=== PATIENT | male | born 1950 | race Caucasian/White ===

== ENCOUNTER 2019-07-07 18:59 | Observation (INO) | payer BC ==
[2019-07-07] MEDS ORDERED: Ketorolac 30 MG/ML SDV IVPUSH ONE (19:36)
[2019-07-07] MEDS ORDERED: Sodium Chloride 0.9% 10 ML Syringe FLUSH PRN ×2 (19:36→21:58)
[2019-07-07] MEDS ORDERED: Doxycycline 100 MG in Sodium Chloride 0.9% 100 ML IV ONE (19:38)
[2019-07-07] MEDS ORDERED: Lactated Ringers 1,000 ML IV SCH (19:45)
[2019-07-07] MEDS ORDERED: Acetaminophen 325 MG Tab PO ONE (20:11)
--- NOTE | 2019-07-07 20:12 | EDM.PDOC ---
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 No shortness of breath no chest pain no nausea or vomiting does have the chills lower back Pain Score (Numeric/FACES): 6 headache Pain Score (Numeric/FACES): 6 - Related Data Allergies Allergy/AdvReac Type Severity Reaction Status Date / Time Sulfa (Sulfonamide Allergy Rash Verified 07/07/19 19:40 Antibiotics) Home Meds: Home Meds Insulin NPH Hum/Reg Insulin Hm [Novolin 70-30 Flexpen] 50 units SUBCUT TID 07/06 [History] hydroCHLOROthiazide [Hydrochlorothiazide] 25 mg PO BID 07/07/19 [History] Past Medical History HEENT History: Reports: Impaired Vision, Other (See Below) Other HEENT History: glasses Cardiovascular History: Reports: Hypertension Respiratory History: Reports: Sleep Apnea Musculoskeletal History: Reports: Arthritis, Gout Neurological History: Reports: Brain Injury, Head Trauma Psychiatric History: Reports: Anxiety Endocrine/Metabolic History: Reports: Diabetes, Type II - Infectious Disease History Infectious Disease History: Reports: Chicken Pox, Measles - Past Surgical History GI Surgical History: Reports: Appendectomy, Hernia Repair/Other Social & Family History - Tobacco Use Smoking Status *Q: Never Smoker - Caffeine Use Caffeine Use: Reports: None - Recreational Drug Use Recreational Drug Use: No ED ROS GENERAL - Review of Systems Review Of Systems: See Below Constitutional: Reports: Fever, Weakness HEENT: Reports: No Symptoms Respiratory: Reports: No Symptoms Cardiovascular: Reports: No Symptoms GI/Abdominal: Reports: No Symptoms : Reports: No Symptoms Musculoskeletal: Reports: Muscle Pain (Body aches) Skin: Denies: Rash Neurological: Reports: No Symptoms ED EXAM, SEPSIS - Physical Exam Exam: See Below Exam Limited By: No Limitations General Appearance: Alert, Mild Distress Neck: Normal Inspection, Supple, Non-Tender, Full Range of Motion Respiratory/Chest: No Respiratory Distress, Lungs Clear, Normal Breath Sounds, No Accessory Muscle Use, Chest Non-Tender Cardiovascular: Regular Rate, Rhythm, No Murmur GI/Abdominal Exam: Soft, Non-Tender Extremities: Normal Inspection, No Pedal Edema Course - Vital Signs Last Recorded V/S: Last Vital Signs Temp 99.9 F 07/07/19 21:46 Pulse 90 07/07/19 21:46 Resp 29 H 07/07/19 21:46 BP 95/50 L 07/07/19 21:46 Pulse Ox 94 L 07/07/19 21:46 - Orders/Labs/Meds Orders: Active Orders 24 hr Category Date Time Status BABESIA MICROTI ANTIBODY PANEL Urgent Lab 07/07/19 19:32 Received CULTURE BLOOD [BC] Urgent Lab 07/07/19 19:32 Received CULTURE BLOOD [BC] Urgent Lab 07/07/19 19:42 Received HUMAN GRANULOCYTIC LATASHA-HGE Urgent Lab 07/07/19 19:32 Received LYME, TOTAL AB TEST/REFLEX Urgent Lab 07/07/19 19:32 Received REFLEX LACTIC ACID YES OR NO [CHEM] Routine Lab 07/07/19 20:11 Received Lactated Ringers [Ringers, Lactated] 1,000 ml Med 07/07/19 19:45 Active IV ASDIRECTED Sodium Chloride 0.9% [Saline Flush] Med 07/07/19 19:36 Active 10 ml FLUSH ASDIRECTED PRN Blood Culture x2 Reflex Set [OM.PC] Urgent Oth 07/07/19 19:36 Ordered Isolation [COMM] Routine Oth 07/07/19 21:00 Ordered Saline Lock Insert [OM.PC] Stat Oth 07/07/19 19:36 Ordered Severe Sepsis Onset Time [OM.PC] Stat Oth 07/07/19 19:36 Ordered Medication Orders Lactated Ringer's (Ringers, Lactated) 1,000 mls @ 999 mls/hr IV ASDIRECTED RANDI Last Admin: 07/07/19 20:09 Dose: 999 mls/hr Sodium Chloride (Saline Flush) 10 ml FLUSH ASDIRECTED PRN PRN Reason: Keep Vein Open Last Admin: 07/07/19 20:42 Dose: 10 ml Labs: Laboratory Tests 05/15/20 05/15/20 05/15/20 Range/Units 19:32 19:32 19:32 WBC 6.1 (4.5-11.0) K/uL RBC 4.04 L (4.30-5.90) M/uL Hgb 12.2 (12.0-15.0) g/dL Hct 35.8 L (40.0-54.0) % MCV 89 (80-98) fL MCH 30 (27-31) pg MCHC 34 (32-36) % Plt Count 269 (150-400) K/uL Neut % (Auto) 70 H (36-66) % Lymph % (Auto) 22 L (24-44) % [place] % (Auto) 8 H (2-6) % Eos % (Auto) 0 L (2-4) % Baso % (Auto) 0 (0-1) % Puncture Site ABG pH (7.350-7.450) ABG pCO2 (35.0-42.0) mmHg ABG pO2 (75.0-100.0) mmHg ABG HCO3 (22.0-26.0) mmol/L ABG Total CO2 (23.0-27.0) mmol/L ABG O2 Saturation (95.0-98.0) % ABG O2 Content (15.0-23.0) %vol ABG Base Excess mm/L ABG Hemoglobin (13.5-18.0) g/dL ABG Oxyhemoglobin % ABG Carboxyhemoglobin (0.0-1.6) % ABG Methemoglobin % Bola Test O2 Delivery Device Oxygen Flow Rate L Sodium 131 L (140-148) mmol/L Potassium 3.8 (3.6-5.2) mmol/L Chloride 97 L (100-108) mmol/L Carbon Dioxide 27 (21-32) mmol/L Anion Gap 10.8 (5.0-14.0) mmol/L BUN 41 H (7-18) mg/dL Creatinine 1.8 H (0.8-1.3) mg/dL Est Cr Clr Drug Dosing 41.68 mL/min Estimated GFR (MDRD) 38 L (>60) Glucose 265 H (74-106) mg/dL Lactic Acid 2.2 H (0.4-2.0) mmol/L Calcium 8.0 L (8.5-10.1) mg/dL Total Bilirubin 0.6 (0.2-1.0) mg/dL AST 64 H (15-37) U/L ALT 126 H (12-78) U/L Alkaline Phosphatase 145 H (46-116) U/L Lactate Dehydrogenase (85-227) U/L C-Reactive Protein (0.0-0.3) mg/dL Total Protein 6.8 (6.4-8.2) g/dL Albumin 2.6 L (3.4-5.0) g/dL Globulin 4.2 H (2.3-3.5) g/dL Albumin/Globulin Ratio 0.6 L (1.2-2.2) Lipase 95 (73-393) U/L Procalcitonin ng/mL Urine Color (YELLOW) Urine Appearance (CLEAR) Urine pH (5.0-8.0) Ur Specific [place] (1.008-1.030) Urine Protein (NEGATIVE) mg/dL Urine Glucose (UA) (NEGATIVE) mg/dL Urine Ketones (NEGATIVE) mg/dL Urine Occult Blood (NEGATIVE) Urine Nitrite (NEGATIVE) Urine Bilirubin (NEGATIVE) Urine Urobilinogen (0.2-1.0) EU/dL Ur Leukocyte Esterase (NEGATIVE) Urine RBC (0-5) Urine WBC (0-5) Ur Epithelial Cells Amorphous Sediment Urine Bacteria Urine Mucus 07/07/19 07/07/19 07/07/19 Range/Units 19:32 19:32 19:52 WBC (4.5-11.0) K/uL RBC (4.30-5.90) M/uL Hgb (12.0-15.0) g/dL Hct (40.0-54.0) % MCV (80-98) fL MCH (27-31) pg MCHC (32-36) % Plt Count (150-400) K/uL Neut % (Auto) (36-66) % Lymph % (Auto) (24-44) % [place] % (Auto) (2-6) % Eos % (Auto) (2-4) % Baso % (Auto) (0-1) % Puncture Site ABG pH (7.350-7.450) ABG pCO2 (35.0-42.0) mmHg ABG pO2 (75.0-100.0) mmHg ABG HCO3 (22.0-26.0) mmol/L ABG Total CO2 (23.0-27.0) mmol/L ABG O2 Saturation (95.0-98.0) % ABG O2 Content (15.0-23.0) %vol ABG Base Excess mm/L ABG Hemoglobin (13.5-18.0) g/dL ABG Oxyhemoglobin % ABG Carboxyhemoglobin (0.0-1.6) % ABG Methemoglobin % Bola Test O2 Delivery Device Oxygen Flow Rate L Sodium (140-148) mmol/L Potassium (3.6-5.2) mmol/L Chloride (100-108) mmol/L Carbon Dioxide (21-32) mmol/L Anion Gap (5.0-14.0) mmol/L BUN (7-18) mg/dL Creatinine (0.8-1.3) mg/dL Est Cr Clr Drug Dosing mL/min Estimated GFR (MDRD) (>60) Glucose (74-106) mg/dL Lactic Acid (0.4-2.0) mmol/L Calcium (8.5-10.1) mg/dL Total Bilirubin (0.2-1.0) mg/dL AST (15-37) U/L ALT (12-78) U/L Alkaline Phosphatase (46-116) U/L Lactate Dehydrogenase 206 (85-227) U/L C-Reactive Protein 18.36 H (0.0-0.3) mg/dL Total Protein (6.4-8.2) g/dL Albumin (3.4-5.0) g/dL Globulin (2.3-3.5) g/dL Albumin/Globulin Ratio (1.2-2.2) Lipase (73-393) U/L Procalcitonin 1.81 ng/mL Urine Color Yellow (YELLOW) Urine Appearance Clear (CLEAR) Urine pH 7.0 (5.0-8.0) Ur Specific [place] 1.020 (1.008-1.030) Urine Protein 100 H (NEGATIVE) mg/dL Urine Glucose (UA) 500 H (NEGATIVE) mg/dL Urine Ketones Negative (NEGATIVE) mg/dL Urine Occult Blood Trace-lysed H (NEGATIVE) Urine Nitrite Negative (NEGATIVE) Urine Bilirubin Negative (NEGATIVE) Urine Urobilinogen 0.2 (0.2-1.0) EU/dL Ur Leukocyte Esterase Negative (NEGATIVE) Urine RBC 0-5 (0-5) Urine WBC Not seen (0-5) Ur Epithelial Cells Not seen Amorphous Sediment Not seen Urine Bacteria Not seen Urine Mucus Not seen 07/07/19 Range/Units 21:07 WBC (4.5-11.0) K/uL RBC (4.30-5.90) M/uL Hgb (12.0-15.0) g/dL Hct (40.0-54.0) % MCV (80-98) fL MCH (27-31) pg MCHC (32-36) % Plt Count (150-400) K/uL Neut % (Auto) (36-66) % Lymph % (Auto) (24-44) % [place] % (Auto) (2-6) % Eos % (Auto) (2-4) % Baso % (Auto) (0-1) % Puncture Site Lt radial ABG pH 7.485 H (7.350-7.450) ABG pCO2 33.4 L (35.0-42.0) mmHg ABG pO2 78.6 (75.0-100.0) mmHg ABG HCO3 24.9 (22.0-26.0) mmol/L ABG Total CO2 22.5 L (23.0-27.0) mmol/L ABG O2 Saturation 95.0 (95.0-98.0) % ABG O2 Content 14.2 L (15.0-23.0) %vol ABG Base Excess 2.1 mm/L ABG Hemoglobin 10.8 L (13.5-18.0) g/dL ABG Oxyhemoglobin 92.7 % ABG Carboxyhemoglobin 1.0 (0.0-1.6) % ABG Methemoglobin 1.4 % Bola Test Pass O2 Delivery Device Nasal cannula Oxygen Flow Rate 1.0 L Sodium (140-148) mmol/L Potassium (3.6-5.2) mmol/L Chloride (100-108) mmol/L Carbon Dioxide (21-32) mmol/L Anion Gap (5.0-14.0) mmol/L BUN (7-18) mg/dL Creatinine (0.8-1.3) mg/dL Est Cr Clr Drug Dosing mL/min Estimated GFR (MDRD) (>60) Glucose (74-106) mg/dL Lactic Acid (0.4-2.0) mmol/L Calcium (8.5-10.1) mg/dL Total Bilirubin (0.2-1.0) mg/dL AST (15-37) U/L ALT (12-78) U/L Alkaline Phosphatase (46-116) U/L Lactate Dehydrogenase (85-227) U/L C-Reactive Protein (0.0-0.3) mg/dL Total Protein (6.4-8.2) g/dL Albumin (3.4-5.0) g/dL Globulin (2.3-3.5) g/dL Albumin/Globulin Ratio (1.2-2.2) Lipase (73-393) U/L Procalcitonin ng/mL Urine Color (YELLOW) Urine Appearance (CLEAR) Urine pH (5.0-8.0) Ur Specific [place] (1.008-1.030) Urine Protein (NEGATIVE) mg/dL Urine Glucose (UA) (NEGATIVE) mg/dL Urine Ketones (NEGATIVE) mg/dL Urine Occult Blood (NEGATIVE) Urine Nitrite (NEGATIVE) Urine Bilirubin (NEGATIVE) Urine Urobilinogen (0.2-1.0) EU/dL Ur Leukocyte Esterase (NEGATIVE) Urine RBC (0-5) Urine WBC (0-5) Ur Epithelial Cells Amorphous Sediment Urine Bacteria Urine Mucus Meds: Medications Generic Name Dose Route Start Last Admin Trade Name Kendrickq PRN Reason Stop Dose Admin Lactated Ringer's 1,000 mls @ 999 mls/hr 07/07/19 19:45 07/07/19 20:09 Ringers, Lactated IV 999 mls/hr ASDIRECTED RANDI Administration Sodium Chloride 10 ml 07/07/19 19:36 07/07/19 20:42 Saline Flush FLUSH 10 ml ASDIRECTED PRN Administration Keep Vein Open Discontinued Medications Generic Name Dose Route Start Last Admin Trade Name Freq PRN Reason Stop Dose Admin Acetaminophen 650 mg 07/07/19 20:11 07/07/19 20:16 Tylenol PO 07/07/19 20:12 650 mg NOW ONE Administration Doxycycline Hyclate 100 mg/ 100 mls @ 100 mls/hr 07/07/19 19:38 07/07/19 20: 10 Sodium Chloride IV 07/07/19 20:37 100 mls/hr ONETIME ONE Administration Lactated Ringer's 1,000 mls @ 999 mls/hr 07/07/19 20:48 07/07/19 20:45 Ringers, Lactated IV 07/07/19 21:48 999 mls/hr BOLUS ONE Administration Ketorolac Tromethamine 30 mg 07/07/19 19:36 07/07/19 20:10 Toradol IVPUSH 07/07/19 19:37 30 mg ONETIME ONE Administration Departure - Departure Time of Disposition: 21:58 Disposition: Admitted As Inpatient 68 Condition: Fair Clinical Impression: Tick-borne fever - Discharge Information Referrals: PCP,None [Primary Care Provider] - Forms: ED Department Discharge Sepsis Event Note - Evaluation Sepsis Screening Result: Possible Severe Sepsis Risk - Focused Exam Vital Signs: Vital Signs Temp Temp Pulse Resp BP Pulse Ox 07/07/19 21:46 99.9 F 90 29 H 95/50 L 94 L 07/07/19 21:25 94 27 H 93/53 L 94 L 07/07/19 21:15 100.7 F H 94 16 96/49 L 93 L 07/07/19 20:55 101.2 F H 96 33 H 100/48 L 96 07/07/19 20:46 100.7 F H 07/07/19 20:40 102.9 F H 95 37 H 92/49 L 92 L 07/07/19 20:23 104.0 F H 97 16 95/52 L 90 L 07/07/19 20:17 103.4 F H 96 23 H 119/66 91 L 07/07/19 20:16 103.4 F H 07/07/19 19:26 102.2 F H 102 H 31 H 145/76 H 90 L 07/07/19 19:24 102.2 F H 102 H 31 H 145/76 H 90 L Date Exam was Performed: 07/07/19 Time Exam was Performed: 21:55 - My Orders Last 24 Hours: My Active Orders 07/07/19 19:32 BABESIA MICROTI ANTIBODY PANEL Urgent CULTURE BLOOD [BC] Urgent HUMAN GRANULOCYTIC LATASHA-HGE Urgent LYME, TOTAL AB TEST/REFLEX Urgent 07/07/19 19:36 Sodium Chloride 0.9% [Saline Flush] 10 ml FLUSH ASDIRECTED PRN Blood Culture x2 Reflex Set [OM.PC] Urgent Saline Lock Insert [OM.PC] Stat Severe Sepsis Onset Time [OM.PC] Stat 07/07/19 19:42 CULTURE BLOOD [BC] Urgent 07/07/19 19:45 Lactated Ringers [Ringers, Lactated] 1,000 ml IV ASDIRECTED 07/07/19 20:11 REFLEX LACTIC ACID YES OR NO [CHEM] Routine 07/07/19 21:00 Isolation [COMM] Routine - Assessment/Plan Last 24 Hours: My Active Orders 07/07/19 19:32 BABESIA MICROTI ANTIBODY PANEL Urgent CULTURE BLOOD [BC] Urgent HUMAN GRANULOCYTIC LATASHA-HGE Urgent LYME, TOTAL AB TEST/REFLEX Urgent 07/07/19 19:36 Sodium Chloride 0.9% [Saline Flush] 10 ml FLUSH ASDIRECTED PRN Blood Culture x2 Reflex Set [OM.PC] Urgent Saline Lock Insert [OM.PC] Stat Severe Sepsis Onset Time [OM.PC] Stat 07/07/19 19:42 CULTURE BLOOD [BC] Urgent 07/07/19 19:45 Lactated Ringers [Ringers, Lactated] 1,000 ml IV ASDIRECTED 07/07/19 20:11 REFLEX LACTIC ACID YES OR NO [CHEM] Routine 07/07/19 21:00 Isolation [COMM] Routine Plan: Assessment Acuity = acute Site and laterality = concern for tickborne illness early sepsis Etiology = Ixodes scapularis Manifestations = fever, body aches Location of injury = Home Lab values = CBC unremarkable pH 7.48 PCO2 33.4 PO2 78.6 and a bicarb 24.8 consistent with the primary respiratory alkalosis sodium low at 131 consistent hyponatremia creatinine elevated 1.8 consistent with renal failure stage G3 B lactic acid elevated 2.2 consistent lactic acidosis AST at 64 ALT elevated 126 consistent with elevated liver enzymes LDH 206 normal range CRP elevated 18.36 albumin low at 2.6 consistent with hypoalbuminemia procalcitonin elevated at 1.81 urinalysis reveals 100 protein consistent protein urea 500 glucose consistent with glucosuria influenza a and B are both negative chest x-ray reveals bilateral fibrosis Plan Call discussed case with hospitalist on-call at [phone] kindly agreed to come and evaluate the patient emergency department for admission thus far blood cultures are pending 1 dose doxycycline provided 2 L of lactated Ringer's provided [address] This note was dictated using [email or web address] voice recognition software please call with any questions on syntax or grammar.
[2019-07-07] MEDS ORDERED: Lactated Ringers 1,000 ML IV ONE (20:48)
--- NOTE | 2019-07-07 21:41 | CRLCR ---
INDICATION: Hypoxia TECHNIQUE: Chest 1 view. COMPARISON: None FINDINGS: Cardiovascular and mediastinum: Heart size and vasculature are normal in caliber and appearance. Mediastinum is within normal limits. Lungs and pleural space: Probable bilateral lower lobe pulmonary fibrosis. No sign of infiltrate or mass. No sign of pleural effusion. No pneumothorax. Bones and soft tissues: No significant findings. IMPRESSION: No definitive infiltrates. Probable bilateral lower lobe pulmonary fibrosis. Dictated by Kt Vyas MD @ 07/07/2019 9:40:04 PM Dictated by: Kt Vyas MD @ 07/07/2019 21:40:10 (Electronically Signed)
[2019-07-07] MEDS ORDERED: Acetaminophen 325 MG Tab PO PRN (22:48)
[2019-07-07] MEDS ORDERED: Albuterol 0.083% 2.5 MG/3 ML Neb Soln NEB PRN (22:48)
[2019-07-07] MEDS ORDERED: Morphine 2 MG/ML SYRINGE IVPUSH PRN (22:48)
[2019-07-07] MEDS ORDERED: oxyCODONE 5 MG Tab PO PRN (22:48)
[2019-07-07] MEDS ORDERED: Ondansetron 4 MG Tab.DIS PO PRN (22:48)
[2019-07-07] MEDS ORDERED: Sodium Chloride 0.9% 500 ML IV SCH (22:48)
[2019-07-07] MEDS ORDERED: Pantoprazole 40 MG Vial IV SCH (22:48)
[2019-07-07] MEDS ORDERED: Docusate Sodium 100 MG Cap PO PRN (22:48)
[2019-07-07] MEDS ORDERED: Ondansetron 4 MG/2 ML SDV IV PRN (22:48)
--- NOTE | 2019-07-07 23:00 | PCM.HP.2 ---
H&P History of Present Illness - General Date of Service: 07/07/19 Admit Problem/Dx: Admission Diagnosis/Problem Admission Diagnosis/Problem Fever Source of Information: Patient, Provider - History of Present Illness Initial Comments - Free Text/Narative: 68-year-old gentleman presents emergency department a complaint of fever and body aches he does admit to getting bit by a deer tick possibly about 10 days ago he has not been out socially with any significant travel he is spending time between his farm in [facility] and his cabin on [facility]. No shortness of breath no chest pain no nausea or vomiting does have the chills lower back Assessment Acuity = acute Site and laterality = concern for tickborne illness early sepsis Etiology = Ixodes scapularis Manifestations = fever, body aches Location of injury = Home Lab values = CBC unremarkable pH 7.48 PCO2 33.4 PO2 78.6 and a bicarb 24.8 consistent with the primary respiratory alkalosis sodium low at 131 consistent hyponatremia creatinine elevated 1.8 consistent with renal failure stage G3 B lactic acid elevated 2.2 consistent lactic acidosis AST at 64 ALT elevated 126 consistent with elevated liver enzymes LDH 206 normal range CRP elevated 18.36 albumin low at 2.6 consistent with hypoalbuminemia procalcitonin elevated at 1.81 urinalysis reveals 100 protein consistent protein urea 500 glucose consistent with glucosuria influenza a and B are both negative chest x-ray reveals bilateral fibrosis Plan Call discussed case with hospitalist on-call at [phone] kindly agreed to come and evaluate the patient emergency department for admission thus far blood cultures are pending 1 dose doxycycline provided 2 L of lactated Ringer's provided [address] Onset of Symptoms: Reports: Gradual Duration of Symptoms: Reports: Day(s): (10 to 14 days), Getting Worse Location: Reports: Generalized (fever, chills, body aches and weakness) Severity: Severe Improves with: Reports: None Worsens with: Reports: None Associated Symptoms: Reports: Fever/Chills, Headaches, Loss of Appetite, Malaise , Nausea/Vomiting, Weakness lower back Pain Score (Numeric/FACES): 6 headache Pain Score (Numeric/FACES): 6 - Related Data Allergies/Adverse Reactions: Allergies Allergy/AdvReac Type Severity Reaction Status Date / Time Sulfa (Sulfonamide Allergy Rash Verified 07/07/19 19:40 Antibiotics) Home Medications: Home Meds Insulin NPH Hum/Reg Insulin Hm [Novolin 70-30 Flexpen] 50 units SUBCUT TID 07/06 [History] hydroCHLOROthiazide [Hydrochlorothiazide] 25 mg PO BID 07/07/19 [History] Past Medical History HEENT History: Reports: Impaired Vision, Other (See Below) Other HEENT History: glasses Cardiovascular History: Reports: Hypertension Respiratory History: Reports: Sleep Apnea Gastrointestinal History: Reports: Other (See Below) Other Gastrointestinal History: celiacs disease Musculoskeletal History: Reports: Arthritis, Gout Neurological History: Reports: Brain Injury, Head Trauma Other Neuro History: skull surgery due to head crush injury Psychiatric History: Reports: Anxiety Endocrine/Metabolic History: Reports: Diabetes, Type II - Infectious Disease History Infectious Disease History: Reports: Chicken Pox, Measles - Past Surgical History GI Surgical History: Reports: Appendectomy, Hernia Repair/Other Social & Family History - Tobacco Use Smoking Status *Q: Never Smoker - Caffeine Use Caffeine Use: Reports: None - Recreational Drug Use Recreational Drug Use: No - Living Situation & Occupation Living situation: Reports: Occupation: Employed (lives with in home between [place], [place] and [place], [place], currenly staying at [facility] 15 miles north of [place], [place]. 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.) H&P Review of Systems - Review of Systems: Review Of Systems: See Below General: Reports: Fever, Chills, Malaise, Weakness, Fatigue, Decreased Appetite HEENT: Reports: Glasses, Headaches Pulmonary: Reports: No Symptoms Cardiovascular: Reports: No Symptoms Gastrointestinal: Reports: Nausea Genitourinary: Reports: No Symptoms Musculoskeletal: Reports: Back Pain Skin: Reports: Other (reports removed a single [place] T9ick form left inner thigh without rash) Psychiatric: Reports: No Symptoms Neurological: Reports: No Symptoms Hematologic/Lymphatic: Reports: No Symptoms Immunologic: Reports: No Symptoms Exam - Exam Exam: See Below - Vital Signs Vital Signs: Last Vital Signs Temp 37.7 C 07/07/19 21:46 Pulse 81 07/07/19 22:27 Resp 17 07/07/19 22:27 BP 92/50 L 07/07/19 22:27 Pulse Ox 89 L 07/07/19 22:27 Weight: 77.8 kg - Exam General: Alert, Oriented, Cooperative, Mild Distress HEENT: PERRLA, Conjunctiva Clear, EOMI, Hearing Intact, Normal Nasal Septum, Glasses Neck: Supple, Trachea Midline Lungs: Clear to Auscultation, Normal Respiratory Effort Cardiovascular: Regular Rate, Regular Rhythm GI/Abdominal Exam: Normal Bowel Sounds (Male) Exam: Deferred Rectal (Males) Exam: Deferred Back Exam: Normal Inspection, Full Range of Motion, NT Extremities: Normal Inspection, Normal Range of Motion, Non-Tender, No Pedal Edema, Normal Capillary Refill Peripheral Pulses: 2+: Radial (L), Radial (R), Dorsalis Pedis (L), Dorsalis Pedis (R) Skin: Warm, Dry, Intact Neurological: Cranial Nerves Intact, Reflexes Equal Bilateral Neuro Extensive - Mental Status: Alert, Oriented x3, Normal Mood/Affect, Normal Cognition Neuro Extensive - Motor, Sensory, Reflexes: CN II-XII Intact, Normal Gait, Normal Reflexes Psychiatric: Alert, Normal Affect, Normal Mood - Patient Data Lab Results Last 24 hrs: Laboratory Results - last 24 hr 07/07/19 07/07/19 07/07/19 Range/Units 19:32 19:32 19:32 WBC 6.1 (4.5-11.0) K/uL RBC 4.04 L (4.30-5.90) M/uL Hgb 12.2 (12.0-15.0) g/dL Hct 35.8 L (40.0-54.0) % MCV 89 (80-98) fL MCH 30 (27-31) pg MCHC 34 (32-36) % Plt Count 269 (150-400) K/uL Neut % (Auto) 70 H (36-66) % Lymph % (Auto) 22 L (24-44) % [place] % (Auto) 8 H (2-6) % Eos % (Auto) 0 L (2-4) % Baso % (Auto) 0 (0-1) % Puncture Site ABG pH (7.350-7.450) ABG pCO2 (35.0-42.0) mmHg ABG pO2 (75.0-100.0) mmHg ABG HCO3 (22.0-26.0) mmol/L ABG Total CO2 (23.0-27.0) mmol/L ABG O2 Saturation (95.0-98.0) % ABG O2 Content (15.0-23.0) %vol ABG Base Excess mm/L ABG Hemoglobin (13.5-18.0) g/dL ABG Oxyhemoglobin % ABG Carboxyhemoglobin (0.0-1.6) % ABG Methemoglobin % Bola Test O2 Delivery Device Oxygen Flow Rate L Sodium 131 L (140-148) mmol/L Potassium 3.8 (3.6-5.2) mmol/L Chloride 97 L (100-108) mmol/L Carbon Dioxide 27 (21-32) mmol/L Anion Gap 10.8 (5.0-14.0) mmol/L BUN 41 H (7-18) mg/dL Creatinine 1.8 H (0.8-1.3) mg/dL Est Cr Clr Drug Dosing 41.68 mL/min Estimated GFR (MDRD) 38 L (>60) Glucose 265 H (74-106) mg/dL Lactic Acid 2.2 H (0.4-2.0) mmol/L Calcium 8.0 L (8.5-10.1) mg/dL Total Bilirubin 0.6 (0.2-1.0) mg/dL AST 64 H (15-37) U/L ALT 126 H (12-78) U/L Alkaline Phosphatase 145 H (46-116) U/L Lactate Dehydrogenase (85-227) U/L C-Reactive Protein (0.0-0.3) mg/dL Total Protein 6.8 (6.4-8.2) g/dL Albumin 2.6 L (3.4-5.0) g/dL Globulin 4.2 H (2.3-3.5) g/dL Albumin/Globulin Ratio 0.6 L (1.2-2.2) Lipase 95 (73-393) U/L Procalcitonin ng/mL Urine Color (YELLOW) Urine Appearance (CLEAR) Urine pH (5.0-8.0) Ur Specific [place] (1.008-1.030) Urine Protein (NEGATIVE) mg/dL Urine Glucose (UA) (NEGATIVE) mg/dL Urine Ketones (NEGATIVE) mg/dL Urine Occult Blood (NEGATIVE) Urine Nitrite (NEGATIVE) Urine Bilirubin (NEGATIVE) Urine Urobilinogen (0.2-1.0) EU/dL Ur Leukocyte Esterase (NEGATIVE) Urine RBC (0-5) Urine WBC (0-5) Ur Epithelial Cells Amorphous Sediment Urine Bacteria Urine Mucus 07/07/19 07/07/19 07/07/19 Range/Units 19:32 19:32 19:52 WBC (4.5-11.0) K/uL RBC (4.30-5.90) M/uL Hgb (12.0-15.0) g/dL Hct (40.0-54.0) % MCV (80-98) fL MCH (27-31) pg MCHC (32-36) % Plt Count (150-400) K/uL Neut % (Auto) (36-66) % Lymph % (Auto) (24-44) % [place] % (Auto) (2-6) % Eos % (Auto) (2-4) % Baso % (Auto) (0-1) % Puncture Site ABG pH (7.350-7.450) ABG pCO2 (35.0-42.0) mmHg ABG pO2 (75.0-100.0) mmHg ABG HCO3 (22.0-26.0) mmol/L ABG Total CO2 (23.0-27.0) mmol/L ABG O2 Saturation (95.0-98.0) % ABG O2 Content (15.0-23.0) %vol ABG Base Excess mm/L ABG Hemoglobin (13.5-18.0) g/dL ABG Oxyhemoglobin % ABG Carboxyhemoglobin (0.0-1.6) % ABG Methemoglobin % Bola Test O2 Delivery Device Oxygen Flow Rate L Sodium (140-148) mmol/L Potassium (3.6-5.2) mmol/L Chloride (100-108) mmol/L Carbon Dioxide (21-32) mmol/L Anion Gap (5.0-14.0) mmol/L BUN (7-18) mg/dL Creatinine (0.8-1.3) mg/dL Est Cr Clr Drug Dosing mL/min Estimated GFR (MDRD) (>60) Glucose (74-106) mg/dL Lactic Acid (0.4-2.0) mmol/L Calcium (8.5-10.1) mg/dL Total Bilirubin (0.2-1.0) mg/dL AST (15-37) U/L ALT (12-78) U/L Alkaline Phosphatase (46-116) U/L Lactate Dehydrogenase 206 (85-227) U/L C-Reactive Protein 18.36 H (0.0-0.3) mg/dL Total Protein (6.4-8.2) g/dL Albumin (3.4-5.0) g/dL Globulin (2.3-3.5) g/dL Albumin/Globulin Ratio (1.2-2.2) Lipase (73-393) U/L Procalcitonin 1.81 ng/mL Urine Color Yellow (YELLOW) Urine Appearance Clear (CLEAR) Urine pH 7.0 (5.0-8.0) Ur Specific [place] 1.020 (1.008-1.030) Urine Protein 100 H (NEGATIVE) mg/dL Urine Glucose (UA) 500 H (NEGATIVE) mg/dL Urine Ketones Negative (NEGATIVE) mg/dL Urine Occult Blood Trace-lysed H (NEGATIVE) Urine Nitrite Negative (NEGATIVE) Urine Bilirubin Negative (NEGATIVE) Urine Urobilinogen 0.2 (0.2-1.0) EU/dL Ur Leukocyte Esterase Negative (NEGATIVE) Urine RBC 0-5 (0-5) Urine WBC Not seen (0-5) Ur Epithelial Cells Not seen Amorphous Sediment Not seen Urine Bacteria Not seen Urine Mucus Not seen 07/07/19 Range/Units 21:07 WBC (4.5-11.0) K/uL RBC (4.30-5.90) M/uL Hgb (12.0-15.0) g/dL Hct (40.0-54.0) % MCV (80-98) fL MCH (27-31) pg MCHC (32-36) % Plt Count (150-400) K/uL Neut % (Auto) (36-66) % Lymph % (Auto) (24-44) % [place] % (Auto) (2-6) % Eos % (Auto) (2-4) % Baso % (Auto) (0-1) % Puncture Site Lt radial ABG pH 7.485 H (7.350-7.450) ABG pCO2 33.4 L (35.0-42.0) mmHg ABG pO2 78.6 (75.0-100.0) mmHg ABG HCO3 24.9 (22.0-26.0) mmol/L ABG Total CO2 22.5 L (23.0-27.0) mmol/L ABG O2 Saturation 95.0 (95.0-98.0) % ABG O2 Content 14.2 L (15.0-23.0) %vol ABG Base Excess 2.1 mm/L ABG Hemoglobin 10.8 L (13.5-18.0) g/dL ABG Oxyhemoglobin 92.7 % ABG Carboxyhemoglobin 1.0 (0.0-1.6) % ABG Methemoglobin 1.4 % Bola Test Pass O2 Delivery Device Nasal cannula Oxygen Flow Rate 1.0 L Sodium (140-148) mmol/L Potassium (3.6-5.2) mmol/L Chloride (100-108) mmol/L Carbon Dioxide (21-32) mmol/L Anion Gap (5.0-14.0) mmol/L BUN (7-18) mg/dL Creatinine (0.8-1.3) mg/dL Est Cr Clr Drug Dosing mL/min Estimated GFR (MDRD) (>60) Glucose (74-106) mg/dL Lactic Acid (0.4-2.0) mmol/L Calcium (8.5-10.1) mg/dL Total Bilirubin (0.2-1.0) mg/dL AST (15-37) U/L ALT (12-78) U/L Alkaline Phosphatase (46-116) U/L Lactate Dehydrogenase (85-227) U/L C-Reactive Protein (0.0-0.3) mg/dL Total Protein (6.4-8.2) g/dL Albumin (3.4-5.0) g/dL Globulin (2.3-3.5) g/dL Albumin/Globulin Ratio (1.2-2.2) Lipase (73-393) U/L Procalcitonin ng/mL Urine Color (YELLOW) Urine Appearance (CLEAR) Urine pH (5.0-8.0) Ur Specific [place] (1.008-1.030) Urine Protein (NEGATIVE) mg/dL Urine Glucose (UA) (NEGATIVE) mg/dL Urine Ketones (NEGATIVE) mg/dL Urine Occult Blood (NEGATIVE) Urine Nitrite (NEGATIVE) Urine Bilirubin (NEGATIVE) Urine Urobilinogen (0.2-1.0) EU/dL Ur Leukocyte Esterase (NEGATIVE) Urine RBC (0-5) Urine WBC (0-5) Ur Epithelial Cells Amorphous Sediment Urine Bacteria Urine Mucus Result Diagrams: 07/07/19 19:32 07/07/19 19:32 Reggie Results Last 24 hrs: Microbiology 07/07/19 21:14 Influenza Type A Antigen Screen - Final Nasal Aspirate, Unspecified NEGATIVE INFLUENZA A VIRUS AG REFERENCE RANGE: NEGATIVE Influenza Type B Antigen Screen - Final NEGATIVE INFLUENZA B VIRUS AG REFERENCE RANGE: NEGATIVE Sepsis Event Note - Evaluation Sepsis Screening Result: Possible Severe Sepsis Risk - Focused Exam Vital Signs: Vital Signs Temp Temp Pulse Resp BP Pulse Ox 07/07/19 22:27 81 17 92/50 L 89 L 07/07/19 21:46 37.7 C 90 29 H 95/50 L 94 L 07/07/19 21:25 94 27 H 93/53 L 94 L 07/07/19 21:15 38.2 C H 94 16 96/49 L 93 L 07/07/19 20:55 38.4 C H 96 33 H 100/48 L 96 07/07/19 20:46 38.2 C H 07/07/19 20:40 39.4 C H 95 37 H 92/49 L 92 L 07/07/19 20:23 40.0 C H 97 16 95/52 L 90 L 07/07/19 20:17 39.7 C H 96 23 H 119/66 91 L 07/07/19 20:16 39.7 C H 07/07/19 19:26 39.0 C H 102 H 31 H 145/76 H 90 L 07/07/19 19:24 39.0 C H 102 H 31 H 145/76 H 90 L Date Exam was Performed: 07/07/19 Time Exam was Performed: 23:02 - Problem List (1) Fever and chills SNOMED Code(s): 827269162 ICD Code: R50.9 - FEVER, UNSPECIFIED Status: Acute Priority: High Current Visit: Yes (2) Diabetes mellitus type 2, insulin dependent SNOMED Code(s): 087521391 ICD Code: E11.9 - TYPE 2 DIABETES MELLITUS WITHOUT COMPLICATIONS; Z79.4 - 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 DIRECTED Care 07/07/19 21:58 Active BABESIA MICROTI ANTIBODY PANEL Urgent Lab 07/07/19 19:32 Received [id number] SARS-COV-2 RNA Routine Lab 07/07/19 22:20 Received CULTURE BLOOD [BC] Urgent Lab 07/07/19 19:32 Received CULTURE BLOOD [BC] Urgent Lab 07/07/19 19:42 Received HUMAN GRANULOCYTIC LATASHA-HGE Urgent Lab 07/07/19 19:32 Received LYME, TOTAL AB TEST/REFLEX Urgent Lab 07/07/19 19:32 Received REFLEX LACTIC ACID YES OR NO [CHEM] Routine Lab 07/07/19 20:11 Received Lactated Ringers [Ringers, Lactated] 1,000 ml Med 07/07/19 19:45 Active IV ASDIRECTED Sodium Chloride 0.9% [Saline Flush] Med 07/07/19 19:36 Active 10 ml FLUSH ASDIRECTED PRN Sodium Chloride 0.9% [Saline Flush] Med 07/07/19 21:58 Active 10 ml FLUSH ASDIRECTED PRN Blood Culture x2 Reflex Set [OM.PC] Urgent Oth 07/07/19 19:36 Ordered Isolation [COMM] Routine Oth 07/07/19 21:00 Ordered Peripheral IV Insertion Adult [OM.PC] Urgent Oth 07/07/19 21:58 Ordered Saline Lock Insert [OM.PC] Stat Oth 07/07/19 19:36 Ordered Severe Sepsis Onset Time [OM.PC] Stat Oth 07/07/19 19:36 Ordered Resuscitation Status Routine Resus Stat 07/07/19 22:23 Ordered Medication Orders Lactated Ringer's (Ringers, Lactated) 1,000 mls @ 999 mls/hr IV ASDIRECTED RANDI Last Admin: 07/07/19 20:09 Dose: 999 mls/hr Sodium Chloride (Saline Flush) 10 ml FLUSH ASDIRECTED PRN PRN Reason: Keep Vein Open Last Admin: 07/07/19 20:42 Dose: 10 ml Sodium Chloride (Saline Flush) 10 ml FLUSH ASDIRECTED PRN PRN Reason: Keep Vein Open Assessment/Plan Comment:: ASSESSMENT / PLAN 68-year-old gentleman presents emergency department a complaint of fever and body aches he does admit to getting bit by a deer tick possibly about 10 days ago he has not been out socially with any significant travel he is spending time between his farm in [facility] and his cabin on [facility]. No shortness of breath no chest pain no nausea or vomiting does have the chills lower back Acuity = acute Site and laterality = concern for tickborne illness early sepsis Etiology = Ixodes scapularis Manifestations = fever, body aches Location of injury = Home Lab values = CBC unremarkable pH 7.48 PCO2 33.4 PO2 78.6 and a bicarb 24.8 consistent with the primary respiratory alkalosis sodium low at 131 consistent hyponatremia creatinine elevated 1.8 consistent with renal failure stage G3 B lactic acid elevated 2.2 consistent lactic acidosis AST at 64 ALT elevated 126 consistent with elevated liver enzymes LDH 206 normal range CRP elevated 18.36 albumin low at 2.6 consistent with hypoalbuminemia procalcitonin elevated at 1.81 urinalysis reveals 100 protein consistent protein urea 500 glucose consistent with glucosuria influenza a and B are both negative chest x-ray reveals bilateral fibrosis Plan Call discussed case with hospitalist on-call at 2140 kindly agreed to come and evaluate the patient emergency department for admission thus far blood cultures are pending 1 dose doxycycline provided 2 L of lactated Ringer's provided [address] Fever with early sepsis. history of deer tick x 10 to 14 days ago. Rule out Covid-19 -Admit Observation to [address] [place] [address] for further monitoring -IV Fluids Normal Saline bolus 500ml/hr then NS at 125 mL per hour -IV Antibiotic Doxycillin 1 gram IV every 12 hours -Telemetry -respiratory isolation -Covid 19 testing - test results expected tomorrow afternoon or evening. -Advise to notify nurses of any chest pain or other symptoms -blood cultures x2 pending -And a.m. labs: CBC, CMP TYPE 2 DIABETES MELLITUS - Reports variable dose of NPH 70/30 up to three times a day -NPH 70/30 give 30 units subcut daily -Medium dose sliding scale at meals and bedtime -blood glucose testing before meals and at bedtime -diet; consistent carb, gluten free diet Maintenance issues -Orders home meds: hold HCTZ -Nutrition: consistent diet gluten free diet -Santiago catheter not indicated at this time -DVT: Lovenox 30 mg subcut -PPI; IV Protonix 40mg daily CODE STATUS: FULL Admission status: Admit to [address] [place] [address] Observation -I expect this patient to stay less than 24 hours, not to exceed 96 hours for evaluation and management of this problem admission status: Admit to [address] [place] [address] Disposition; home with Primary care provider: Outside Provider Hospitalist: Dr. Gamboa - Mortality Measure Prognosis:: Good
[2019-07-08] MEDS: Sodium Chloride 0.9% 1,000 ML IV SCH ×2 (00:44→04:45)
[2019-07-08] MEDS ORDERED: Insulin Lispro 100 Unit/ML 3 ML KwikPen SUBCUT SCH (07:00)
[2019-07-08] MEDS ORDERED: Doxycycline 100 MG in Sodium Chloride 0.9% 100 ML IV SCH ×2 (08:30→09:10)
[2019-07-08] MEDS ORDERED: Insulin NPH/Insulin Regular,Human 70-30 100 Units/ML 10 ML Vial SUBCUT SCH ×3 (09:00)
[2019-07-08] MEDS ORDERED: Enoxaparin 40 MG/0.4 ML Syringe SUBCUT SCH (09:00)
--- NOTE | 2019-07-08 09:50 | PCM.DCSUM1 ---
Discharge Summary - Hospital Course Brief History: Mr. Saldivar is a 68-year-old gentleman who was admitted through the emergency department with weakness fever and myalgias secondary to anaplasmosis. - Discharge Data Discharge Date: 07/08/19 Discharge Disposition: Home, Self-Care 01 Condition: Fair - Referral to Home Health Primary Care Physician: PCP None - Discharge Diagnosis/Problem(s) (1) CKD (chronic kidney disease) stage 3, GFR 30-59 ml/min SNOMED Code(s): 412978629 ICD Code: N18.3 - CHRONIC KIDNEY DISEASE, STAGE 3 (MODERATE) Status: Acute Current Visit: Yes (2) Dehydration SNOMED Code(s): 21898240 ICD Code: E86.0 - DEHYDRATION Status: Acute Current Visit: Yes (3) Anaplasmosis SNOMED Code(s): 521038294 ICD Code: A77.49 - OTHER EHRLICHIOSIS Status: Acute Current Visit: Yes (4) Pulmonary fibrosis SNOMED Code(s): 26905135 ICD Code: J84.10 - PULMONARY FIBROSIS, UNSPECIFIED Status: Acute Current Visit: Yes (5) Fever and chills SNOMED Code(s): 233389979 ICD Code: R50.9 - FEVER, UNSPECIFIED Status: Acute Priority: High Current Visit: Yes (6) Diabetes mellitus type 2, insulin dependent SNOMED Code(s): 724248857 ICD Code: E11.9 - TYPE 2 DIABETES MELLITUS WITHOUT COMPLICATIONS; 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 Saldivar is a 68-year-old gentleman who was admitted through the emergency department with fever, weakness, and myalgias, presumed secondary to anaplasmosis. He does recall a tick bite approximately 1 week ago with a small tick that he removed. Over the past several days he has experienced myalgias and fever. Denies significant shortness of breath. Because of persistent symptoms he presented to the emergency department. White blood cell count was within normal range and he did have significant temperature elevation. Liver enzymes were mildly elevated, platelet count within normal range. He does have known underlying type 2 diabetes mellitus as well as some chronic kidney disease. Respiratory rate was noted to be elevated although he denied shortness of breath. Chest x-ray showed evidence of bibasilar fibrosis, no other abnormalities. Arterial blood gases were acceptable. He was admitted to the hospital and given IV fluids for hydration, COVID-19 test was obtained because of his elevated respiratory rate and fever. COVID test results are pending at the time of discharge and patient will be notified of these results later today. Renal function had improved with hydration and glucose levels remained within acceptable range during hospitalization. I did recommend to the patient that he remain hospitalized at least 1 additional day for further fluids monitoring and IV antibiotics. He refused this recommendation and requested that he be discharged home today despite my reservations. Per his request he will be discharged home with doxycycline 100 mg twice daily for an additional 9 days. He should return immediately to the emergency department if he notes increased shortness of breath or any other significant or severe symptoms. Activity will be as tolerated and he will resume his usual diabetic gluten-free diet. Follow-up appointment will be scheduled with his primary care provider later this week. - Patient Instructions Diet: Usual Diet as Tolerated Activity: As Tolerated Other/Special Instructions: Please schedule follow-up appointment with primary care provider within 1 week. Notify patient of COVID results when they become available later today. - Discharge Plan *PRESCRIPTION DRUG MONITORING PROGRAM REVIEWED*: Not Applicable *COPY OF PRESCRIPTION DRUG MONITORING REPORT IN PATIENT BARRERA: Not Applicable Prescriptions/Med Rec: Doxycycline [Vibramycin] 100 mg PO DAILY #18 cap Lactobacillus Rhamnosus GG [Culturelle] 1 cap PO BID #60 cap Home Medications: Home Meds Insulin NPH Hum/Reg Insulin Hm [Novolin 70-30 Flexpen] 50 units SUBCUT TID 07/06 [History] hydroCHLOROthiazide [Hydrochlorothiazide] 25 mg PO BID 07/07/19 [History] Doxycycline [Vibramycin] 100 mg PO DAILY #18 cap 07/08/19 [Rx] Lactobacillus Rhamnosus GG [Culturelle] 1 cap PO BID #60 cap 07/08/19 [Rx] - Discharge Summary/Plan Comment DC Time >30 min.: No - Patient Data Vitals - Most Recent: Last Vital Signs Temp 96.5 F L 07/08/19 08:18 Pulse 67 07/08/19 07:32 Resp 16 07/08/19 07:32 BP 118/77 07/08/19 07:32 Pulse Ox 98 07/08/19 07:32 Weight - Most Recent: 171 lb 8.314 oz I&O - Last 24 hours: Intake & Output 07/07/19 07/08/19 07/08/19 22:59 06:59 14:59 Intake Total 1007 561 Balance 1007 561 Lab Results - Last 24 hrs: Laboratory Results - last 24 hr 07/07/19 07/07/19 07/07/19 Range/Units 19:32 19:32 19:32 WBC 6.1 (4.5-11.0) K/uL RBC 4.04 L (4.30-5.90) M/uL Hgb 12.2 (12.0-15.0) g/dL Hct 35.8 L (40.0-54.0) % MCV 89 (80-98) fL MCH 30 (27-31) pg MCHC 34 (32-36) % Plt Count 269 (150-400) K/uL Neut % (Auto) 70 H (36-66) % Lymph % (Auto) 22 L (24-44) % Kinney % (Auto) 8 H (2-6) % Eos % (Auto) 0 L (2-4) % Baso % (Auto) 0 (0-1) % Add Manual Diff Neutrophils % (Manual) (36-66) % Band Neutrophils % (5-11) % Lymphocytes % (Manual) (24-44) % Monocytes % (Manual) (2-6) % Puncture Site ABG pH (7.350-7.450) ABG pCO2 (35.0-42.0) mmHg ABG pO2 (75.0-100.0) mmHg ABG HCO3 (22.0-26.0) mmol/L ABG Total CO2 (23.0-27.0) mmol/L ABG O2 Saturation (95.0-98.0) % ABG O2 Content (15.0-23.0) %vol ABG Base Excess mm/L ABG Hemoglobin (13.5-18.0) g/dL ABG Oxyhemoglobin % ABG Carboxyhemoglobin (0.0-1.6) % ABG Methemoglobin % Bola Test O2 Delivery Device Oxygen Flow Rate L Sodium 131 L (140-148) mmol/L Potassium 3.8 (3.6-5.2) mmol/L Chloride 97 L (100-108) mmol/L Carbon Dioxide 27 (21-32) mmol/L Anion Gap 10.8 (5.0-14.0) mmol/L BUN 41 H (7-18) mg/dL Creatinine 1.8 H (0.8-1.3) mg/dL Est Cr Clr Drug Dosing 41.68 mL/min Estimated GFR (MDRD) 38 L (>60) Glucose 265 H (74-106) mg/dL Lactic Acid 2.2 H (0.4-2.0) mmol/L Calcium 8.0 L (8.5-10.1) mg/dL Total Bilirubin 0.6 (0.2-1.0) mg/dL AST 64 H (15-37) U/L ALT 126 H (12-78) U/L Alkaline Phosphatase 145 H (46-116) U/L Lactate Dehydrogenase (85-227) U/L C-Reactive Protein (0.0-0.3) mg/dL Total Protein 6.8 (6.4-8.2) g/dL Albumin 2.6 L (3.4-5.0) g/dL Globulin 4.2 H (2.3-3.5) g/dL Albumin/Globulin Ratio 0.6 L (1.2-2.2) Lipase 95 (73-393) U/L Procalcitonin ng/mL Urine Color (YELLOW) Urine Appearance (CLEAR) Urine pH (5.0-8.0) Ur Specific Barnard (1.008-1.030) Urine Protein (NEGATIVE) mg/dL Urine Glucose (UA) (NEGATIVE) mg/dL Urine Ketones (NEGATIVE) mg/dL Urine Occult Blood (NEGATIVE) Urine Nitrite (NEGATIVE) Urine Bilirubin (NEGATIVE) Urine Urobilinogen (0.2-1.0) EU/dL Ur Leukocyte Esterase (NEGATIVE) Urine RBC (0-5) Urine WBC (0-5) Ur Epithelial Cells Amorphous Sediment Urine Bacteria Urine Mucus 07/07/19 07/07/19 07/07/19 Range/Units 19:32 19:32 19:52 WBC (4.5-11.0) K/uL RBC (4.30-5.90) M/uL Hgb (12.0-15.0) g/dL Hct (40.0-54.0) % MCV (80-98) fL MCH (27-31) pg MCHC (32-36) % Plt Count (150-400) K/uL Neut % (Auto) (36-66) % Lymph % (Auto) (24-44) % Kinney % (Auto) (2-6) % Eos % (Auto) (2-4) % Baso % (Auto) (0-1) % Add Manual Diff Neutrophils % (Manual) (36-66) % Band Neutrophils % (5-11) % Lymphocytes % (Manual) (24-44) % Monocytes % (Manual) (2-6) % Puncture Site ABG pH (7.350-7.450) ABG pCO2 (35.0-42.0) mmHg ABG pO2 (75.0-100.0) mmHg ABG HCO3 (22.0-26.0) mmol/L ABG Total CO2 (23.0-27.0) mmol/L ABG O2 Saturation (95.0-98.0) % ABG O2 Content (15.0-23.0) %vol ABG Base Excess mm/L ABG Hemoglobin (13.5-18.0) g/dL ABG Oxyhemoglobin % ABG Carboxyhemoglobin (0.0-1.6) % ABG Methemoglobin % Bola Test O2 Delivery Device Oxygen Flow Rate L Sodium (140-148) mmol/L Potassium (3.6-5.2) mmol/L Chloride (100-108) mmol/L Carbon Dioxide (21-32) mmol/L Anion Gap (5.0-14.0) mmol/L BUN (7-18) mg/dL Creatinine (0.8-1.3) mg/dL Est Cr Clr Drug Dosing mL/min Estimated GFR (MDRD) (>60) Glucose (74-106) mg/dL Lactic Acid (0.4-2.0) mmol/L Calcium (8.5-10.1) mg/dL Total Bilirubin (0.2-1.0) mg/dL AST (15-37) U/L ALT (12-78) U/L Alkaline Phosphatase (46-116) U/L Lactate Dehydrogenase 206 (85-227) U/L C-Reactive Protein 18.36 H (0.0-0.3) mg/dL Total Protein (6.4-8.2) g/dL Albumin (3.4-5.0) g/dL Globulin (2.3-3.5) g/dL Albumin/Globulin Ratio (1.2-2.2) Lipase (73-393) U/L Procalcitonin 1.81 ng/mL Urine Color Yellow (YELLOW) Urine Appearance Clear (CLEAR) Urine pH 7.0 (5.0-8.0) Ur Specific Barnard 1.020 (1.008-1.030) Urine Protein 100 H (NEGATIVE) mg/dL Urine Glucose (UA) 500 H (NEGATIVE) mg/dL Urine Ketones Negative (NEGATIVE) mg/dL Urine Occult Blood Trace-lysed H (NEGATIVE) Urine Nitrite Negative (NEGATIVE) Urine Bilirubin Negative (NEGATIVE) Urine Urobilinogen 0.2 (0.2-1.0) EU/dL Ur Leukocyte Esterase Negative (NEGATIVE) Urine RBC 0-5 (0-5) Urine WBC Not seen (0-5) Ur Epithelial Cells Not seen Amorphous Sediment Not seen Urine Bacteria Not seen Urine Mucus Not seen 07/07/19 07/07/19 07/08/19 Range/Units 21:07 23:30 04:10 WBC 7.9 (4.5-11.0) K/uL RBC 3.38 L (4.30-5.90) M/uL Hgb 10.3 L (12.0-15.0) g/dL Hct 29.7 L (40.0-54.0) % MCV 88 (80-98) fL MCH 31 (27-31) pg MCHC 35 (32-36) % Plt Count (150-400) K/uL Neut % (Auto) (36-66) % Lymph % (Auto) (24-44) % Kinney % (Auto) (2-6) % Eos % (Auto) (2-4) % Baso % (Auto) (0-1) % Add Manual Diff Yes Neutrophils % (Manual) 60 (36-66) % Band Neutrophils % 4 L (5-11) % Lymphocytes % (Manual) 27 (24-44) % Monocytes % (Manual) 9 H (2-6) % Puncture Site Lt radial ABG pH 7.485 H (7.350-7.450) ABG pCO2 33.4 L (35.0-42.0) mmHg ABG pO2 78.6 (75.0-100.0) mmHg ABG HCO3 24.9 (22.0-26.0) mmol/L ABG Total CO2 22.5 L (23.0-27.0) mmol/L ABG O2 Saturation 95.0 (95.0-98.0) % ABG O2 Content 14.2 L (15.0-23.0) %vol ABG Base Excess 2.1 mm/L ABG Hemoglobin 10.8 L (13.5-18.0) g/dL ABG Oxyhemoglobin 92.7 % ABG Carboxyhemoglobin 1.0 (0.0-1.6) % ABG Methemoglobin 1.4 % Bola Test Pass O2 Delivery Device Nasal cannula Oxygen Flow Rate 1.0 L Sodium (140-148) mmol/L Potassium (3.6-5.2) mmol/L Chloride (100-108) mmol/L Carbon Dioxide (21-32) mmol/L Anion Gap (5.0-14.0) mmol/L BUN (7-18) mg/dL Creatinine (0.8-1.3) mg/dL Est Cr Clr Drug Dosing mL/min Estimated GFR (MDRD) (>60) Glucose (74-106) mg/dL Lactic Acid 1.1 (0.4-2.0) mmol/L Calcium (8.5-10.1) mg/dL Total Bilirubin (0.2-1.0) mg/dL AST (15-37) U/L ALT (12-78) U/L Alkaline Phosphatase (46-116) U/L Lactate Dehydrogenase (85-227) U/L C-Reactive Protein (0.0-0.3) mg/dL Total Protein (6.4-8.2) g/dL Albumin (3.4-5.0) g/dL Globulin (2.3-3.5) g/dL Albumin/Globulin Ratio (1.2-2.2) Lipase (73-393) U/L Procalcitonin ng/mL Urine Color (YELLOW) Urine Appearance (CLEAR) Urine pH (5.0-8.0) Ur Specific Barnard (1.008-1.030) Urine Protein (NEGATIVE) mg/dL Urine Glucose (UA) (NEGATIVE) mg/dL Urine Ketones (NEGATIVE) mg/dL Urine Occult Blood (NEGATIVE) Urine Nitrite (NEGATIVE) Urine Bilirubin (NEGATIVE) Urine Urobilinogen (0.2-1.0) EU/dL Ur Leukocyte Esterase (NEGATIVE) Urine RBC (0-5) Urine WBC (0-5) Ur Epithelial Cells Amorphous Sediment Urine Bacteria Urine Mucus 07/08/19 Range/Units 04:10 WBC (4.5-11.0) K/uL RBC (4.30-5.90) M/uL Hgb (12.0-15.0) g/dL Hct (40.0-54.0) % MCV (80-98) fL MCH (27-31) pg MCHC (32-36) % Plt Count (150-400) K/uL Neut % (Auto) (36-66) % Lymph % (Auto) (24-44) % Kinney % (Auto) (2-6) % Eos % (Auto) (2-4) % Baso % (Auto) (0-1) % Add Manual Diff Neutrophils % (Manual) (36-66) % Band Neutrophils % (5-11) % Lymphocytes % (Manual) (24-44) % Monocytes % (Manual) (2-6) % Puncture Site ABG pH (7.350-7.450) ABG pCO2 (35.0-42.0) mmHg ABG pO2 (75.0-100.0) mmHg ABG HCO3 (22.0-26.0) mmol/L ABG Total CO2 (23.0-27.0) mmol/L ABG O2 Saturation (95.0-98.0) % ABG O2 Content (15.0-23.0) %vol ABG Base Excess mm/L ABG Hemoglobin (13.5-18.0) g/dL ABG Oxyhemoglobin % ABG Carboxyhemoglobin (0.0-1.6) % ABG Methemoglobin % Bola Test O2 Delivery Device Oxygen Flow Rate L Sodium 133 L (140-148) mmol/L Potassium 4.6 (3.6-5.2) mmol/L Chloride 103 (100-108) mmol/L Carbon Dioxide 23 (21-32) mmol/L Anion Gap 11.6 (5.0-14.0) mmol/L BUN 37 H (7-18) mg/dL Creatinine 1.5 H (0.8-1.3) mg/dL Est Cr Clr Drug Dosing 50.14 mL/min Estimated GFR (MDRD) 47 L (>60) Glucose 129 H (74-106) mg/dL Lactic Acid (0.4-2.0) mmol/L Calcium 6.8 L* (8.5-10.1) mg/dL Total Bilirubin 0.4 (0.2-1.0) mg/dL AST 58 H (15-37) U/L ALT 96 H (12-78) U/L Alkaline Phosphatase 111 (46-116) U/L Lactate Dehydrogenase (85-227) U/L C-Reactive Protein (0.0-0.3) mg/dL Total Protein 5.3 L (6.4-8.2) g/dL Albumin 1.9 L (3.4-5.0) g/dL Globulin 3.4 (2.3-3.5) g/dL Albumin/Globulin Ratio 0.6 L (1.2-2.2) Lipase (73-393) U/L Procalcitonin ng/mL Urine Color (YELLOW) Urine Appearance (CLEAR) Urine pH (5.0-8.0) Ur Specific Barnard (1.008-1.030) Urine Protein (NEGATIVE) mg/dL Urine Glucose (UA) (NEGATIVE) mg/dL Urine Ketones (NEGATIVE) mg/dL Urine Occult Blood (NEGATIVE) Urine Nitrite (NEGATIVE) Urine Bilirubin (NEGATIVE) Urine Urobilinogen (0.2-1.0) EU/dL Ur Leukocyte Esterase (NEGATIVE) Urine RBC (0-5) Urine WBC (0-5) Ur Epithelial Cells Amorphous Sediment Urine Bacteria Urine Mucus FLOR Results - Last 24 hrs: Microbiology 07/07/19 21:14 Influenza Type A Antigen Screen - Final Nasal Aspirate, Unspecified NEGATIVE INFLUENZA A VIRUS AG REFERENCE RANGE: NEGATIVE Influenza Type B Antigen Screen - Final NEGATIVE INFLUENZA B VIRUS AG REFERENCE RANGE: NEGATIVE Med Orders - Current: Current Medications Acetaminophen (Tylenol) 650 mg PO Q4H PRN PRN Reason: Pain (Mild 1-3)/fever Last Admin: 07/08/19 04:46 Dose: 650 mg Albuterol (Proventil Neb Soln) 2.5 mg NEB Q4H PRN PRN Reason: Shortness Of Breath/wheezing Docusate Sodium (Colace) 100 mg PO BID PRN PRN Reason: Constipation Enoxaparin Sodium (Lovenox) 40 mg SUBCUT DAILY [facility] Last Admin: 07/08/19 08:32 Dose: 40 mg Lactated Ringer's (Ringers, Lactated) 1,000 mls @ 999 mls/hr IV ASDIRECTED [facility] Last Admin: 07/07/19 20:09 Dose: 999 mls/hr Sodium Chloride (Normal Saline) 1,000 mls @ 125 mls/hr IV ASDIRECTED [facility] Last Admin: 07/08/19 04:45 Dose: 125 mls/hr Doxycycline Hyclate 100 mg/ (Sodium Chloride) 100 mls @ 100 mls/hr IV Q12H [facility] Last Admin: 07/08/19 08:24 Dose: 100 mls/hr Insulin Human Isoph/Insulin Regular (Humulin 70-30) 20 units SUBCUT DAILY [facility] Last Admin: 07/08/19 08:42 Dose: 20 units Insulin Human Lispro (Humalog) 0 unit SUBCUT QIDACANDBED [facility]; Protocol Last Admin: 07/08/19 08:22 Dose: Not Given Morphine Sulfate (Morphine) 2 mg IVPUSH Q2H PRN PRN Reason: Pain (severe 7-10) Ondansetron HCl (Zofran Odt) 4 mg PO Q6H PRN PRN Reason: Nausea able to take PO Ondansetron HCl (Zofran) 4 mg IV Q4H PRN PRN Reason: Nausea/Vomiting Oxycodone HCl (Oxycodone) 5 mg PO Q4H PRN PRN Reason: Pain (moderate 4-6) Pantoprazole Sodium (Protonix) 40 mg PO BEDTIME [facility] Sodium Chloride (Saline Flush) 10 ml FLUSH ASDIRECTED PRN PRN Reason: Keep Vein Open Discontinued Medications Acetaminophen (Tylenol) 650 mg PO NOW ONE Stop: 07/07/19 20:12 Last Admin: 07/07/19 20:16 Dose: 650 mg Doxycycline Hyclate 100 mg/ (Sodium Chloride) 100 mls @ 100 mls/hr IV ONETIME ONE Stop: 07/07/19 20:37 Last Admin: 07/07/19 20:10 Dose: 100 mls/hr Lactated Ringer's (Ringers, Lactated) 1,000 mls @ 999 mls/hr IV BOLUS ONE Stop: 07/07/19 21:48 Last Admin: 07/07/19 20:45 Dose: 999 mls/hr Sodium Chloride (Normal Saline) 500 mls @ 500 mls/hr IV .BOLUS [facility] Last Admin: 07/07/19 23:31 Dose: 500 mls/hr Insulin Human Isoph/Insulin Regular (Humulin 70-30) 30 units SUBCUT DAILY [facility] Ketorolac Tromethamine (Toradol) 30 mg IVPUSH ONETIME ONE Stop: 07/07/19 19:37 Last Admin: 07/07/19 20:10 Dose: 30 mg Pantoprazole Sodium (Protonix Iv) 40 mg IV DAILY [facility] Last Admin: 07/07/19 23:48 Dose: 40 mg Sodium Chloride (Saline Flush) 10 ml FLUSH ASDIRECTED PRN PRN Reason: Keep Vein Open Last Admin: 07/07/19 20:42 Dose: 10 ml - Exam Quality Assessment: Reports: DVT Prophylaxis General: Reports: Alert, Oriented, Cooperative, Mild Distress Lungs: Reports: Normal Respiratory Effort, Other (Dry bibasilar rales) Cardiovascular: Reports: Regular Rate, Regular Rhythm, Murmurs GI/Abdominal Exam: Soft, Non-Tender, No Organomegaly, No Distention Extremities: Non-Tender, No Pedal Edema
[2019-07-08] MEDS ORDERED: Pantoprazole 40 MG Tab.CR PO SCH (21:00)
[2019-07-13 13:09] LABS: HGE IGM TITER Negative (Neg:<1:20)
[2019-07-13 16:09] LABS: BABESIA MICROTI IGG <1:10 (Neg:<1:10); BABESIA MICROTI IGM <1:10 (Neg:<1:10)
[2019-07-15 00:10] LABS: IGG P18 AB. Absent (.); IGG P23 AB. Present (.); IGG P28 AB. Present (.); IGG P30 AB. Absent (.); IGG P39 AB. Absent (.); IGG P41 AB. Absent (.); IGG P45 AB. Present (.); IGG P58 AB. Absent (.); IGG P66 AB. Absent (.); IGG P93 AB. Absent (.); IGM P23 AB. Present (.); IGM P39 AB. Present (.); IGM P41 AB. Present (.); LYME IGG WB INTERP. Negative (.); LYME IGM WB INTERP. Positive (.)
== END 2019-07-08 11:05 | disposition home or self-care (01) ==
LOC: JP.ED 18:59 → JP.MS 22:21
PROVIDERS: ADMIT Hospitalist; ATTEND Hospitalist
DX: R50.9 Fever, unspecified (principal); R53.1 Weakness; M79.10 Myalgia, unspecified site; A77.49 Other ehrlichiosis; J84.10 Pulmonary fibrosis, unspecified; E86.0 Dehydration; F41.9 Anxiety disorder, unspecified; E11.22 Type 2 diabetes mellitus with diabetic chronic kidney disease; I12.9 Hypertensive chronic kidney disease with stage 1 through stage 4 chronic kidney disease, or unspecified chronic kidney disease; N18.3 Chronic kidney disease, stage 3 (moderate); Z20.828 Contact with and (suspected) exposure to other viral communicable diseases; Z88.2 Allergy status to sulfonamides; Z79.4 Long term (current) use of insulin
CPT/HCPCS: 36415; 36600; 71045; 80053; 81001; 82803; 82962; 83605; 83615; 83690; 84145; 85025; 86140; 86666; 86753; 87040; 87804; 96361; 96365; 96375; 99284; A9270; C9113; J1650; J1815; J1885; J3490; J7030; J7050; J7120; 86617-59; 86618; 96366; 96372; G0378; U0002